=== PATIENT | male | born 1995 | race Two or more races ===

== ENCOUNTER 2017-05-29 19:07 | Emergency (ER) | payer MEDICAID ==
[~2017-05-29] VITALS: Ht 193 cm; Wt 68.0 kg
[2017-05-29 21:22] VITALS: BP 117/65
[2017-05-29] MEDS ORDERED: KETOROLAC TROMETH 60MG/2ML VIAL IM ONE (22:15)
[2017-05-29] MEDS ORDERED: ONDANSETRON HCL 4 MG/2 ML VIAL IM ONE (22:15)
== END 2017-05-29 23:12 | disposition home or self-care (01) ==
LOC: EDBD 19:07 → ER 19:13
DX: M54.5 Low back pain (principal); M79.1 Myalgia
CPT/HCPCS: 72100; 96372; 99284; J1885; J2405